=== PATIENT | female | born 1995 | race Hispanic/Latino ===

== ENCOUNTER 2018-08-22 12:03 | Emergency (ER) | payer OTHER, SELFPAY ==
[2018-08-22 12:29] LABS: Bilirubin Small (Negative); Blood, Urine Negative (Negative); Clarity TURBID (Clear); Glucose, Urine (Dipstick) Negative (Negative); Leukocyte Large (Negative); Nitrite Negative (Negative); Protein, Urine (Dipstick) Trace mg/dL (Neg-Trace); Specific Gravity, Urine 1.028 (1.002-1.036); pH, Urine 6.5 (5.0-9.0)
[2018-08-22 12:32] LABS: Bacteria/HPF 1+ HPF (None Seen)
[2018-08-22 12:38] LABS: Pathc Cast-AUWi Flag 3.48 (0-2.49)
[2018-08-22 12:40] LABS: Hyaline Casts/LPF 0-3 HYALINE CAST LPF (0-3 Hyaline); RBC/HPF 0-3 HPF (0-3)
[2018-08-22 12:58] LABS: #Eosinphils 0.1 thou/uL (0.0-0.7); #Lymphocytes 1.5 thou/uL (1.20-3.40); #Monocytes 0.4 thou/uL (0.11-0.59); %Basophils 0.4 % (0.0-1.0); %Eosinophils 2.1 % (0.0-10.0); %Lymphocytes 20.8 % (21.0-51.0); %Monocytes 5.7 % (0.0-10.0); Hemoglobin 13.7 g/dL (12.0-16.0); Mean Corpuscular HGB CONC 33.5 g/dL (32.0-36.0); Mean Corpuscular Hemoglobin 29.9 pg (27.0-31.0); Mean Corpuscular Volume 89.4 fL (78.0-98.0); Mean Platelet Volume 9.7 fL (7.4-10.4); Platelet Count 202 thou/uL (130-400); Red Blood Cell (RBC) Count 4.58 mill/uL (4.20-5.40)
[2018-08-22 13:20] LABS: ALT (SGPT) 73 U/L (8-55); AST (SGOT) 40 U/L (5-34); Albumin 4.4 g/dL (3.5-5.0); Alkaline Phosphatase 61 U/L (40-150); Anion Gap 10 mmol/L (10-20); BUN (Urea Nitrogen) 6 mg/dL (7.0-18.7); Bilirubin, Total 0.4 mg/dL (0.2-1.2); Calc. Creatinine Clearance 0 mL/min (70-130); Calcium 9.9 mg/dL (7.8-10.44); Carbon Dioxide 25 mmol/L (22-29); Chloride 104 mmol/L (98-107); Estimated GFR-MDRD Greater than 90; Globulin 3.1 g/dL (2.4-3.5); Glucose 84 mg/dL (70-105); Lipase 16 U/L (8-78); Potassium 3.9 mmol/L (3.5-5.1); Protein, Total 7.5 g/dL (6.0-8.3); Sodium 135 mmol/L (136-145)
--- NOTE | 2018-08-22 14:47 | ULT ---
PELVIC ULTRASOUND INCLUDING TRANSABDOMINAL AND VASCULAR DUPLEX WIITH COLOR AND SPECTRAL DOPPLER IMAGI NG: Date: 08/22/18 HISTORY: 23-year-old female with history of left pelvic and abdominal pain, with concern for ectopic. FINDINGS: The uterus measures approximately 11.9 x 7.0 x 7.8 cm. There is an intrauterine gestational sac with a viable early pole. heart rate 158 beats/minute. Right ovary measures 3.0 x 2.8 x 2.7 cm . Left ovary measures 3.0 x 2.9 x 1.4 cm. Vascular flow is documented to both ovaries. No evidence fo r ovarian torsion. IMPRESSION: Single viable intrauterine fetus at approximately 8 weeks/1 day of gestation with an EDC of 04/02/19. heart rate 158 beats/minute. Unremarkable adnexa. No abnormal cul-de-sac fluid. POS: [facility]
== END 2018-08-22 14:53 | disposition home or self-care (01) ==
LOC: ERS 12:03
DX: O23.41 Unspecified infection of urinary tract in pregnancy, first trimester (principal); Z3A.08 8 weeks gestation of pregnancy
CPT/HCPCS: 76856; 80053; 81003; 81015; 83690; 84702; 85025; 86900; 86901; 87086; 96360; 96361

== ENCOUNTER 2018-08-26 12:43 | Emergency (ER) | payer SELFPAY ==
[2018-08-26 13:34] LABS: Bilirubin Negative (Negative); Blood, Urine Negative (Negative); Clarity CLOUDY (Clear); Glucose, Urine (Dipstick) Negative (Negative); Leukocyte Large (Negative); Nitrite Negative (Negative); Protein, Urine (Dipstick) Trace mg/dL (Neg-Trace); Specific Gravity, Urine 1.016 (1.002-1.036); pH, Urine 8.5 (5.0-9.0)
[2018-08-26 13:36] LABS: Bacteria/HPF Rare-Few HPF (None Seen); Hyaline Casts/LPF 0-3 HYALINE CAST LPF (0-3 Hyaline); Pathc Cast-AUWi Flag 0.58 (0-2.49)
[2018-08-26 13:42] LABS: RBC/HPF 0-3 HPF (0-3)
[2018-08-26 15:11] LABS: #Eosinphils 0.1 thou/uL (0.0-0.7); #Lymphocytes 1.5 thou/uL (1.20-3.40); #Monocytes 0.4 thou/uL (0.11-0.59); #Neutrophils 5.8 thou/uL (1.40-6.50); %Basophils 0.4 % (0.0-1.0); %Eosinophils 0.9 % (0.0-10.0); %Lymphocytes 19.6 % (21.0-51.0); %Monocytes 5.1 % (0.0-10.0); %Neutrophils 74.1 % (42.0-75.0); Hemoglobin 14.1 g/dL (12.0-16.0); Mean Corpuscular HGB CONC 33.3 g/dL (32.0-36.0); Mean Corpuscular Hemoglobin 29.6 pg (27.0-31.0); Mean Corpuscular Volume 88.9 fL (78.0-98.0); Mean Platelet Volume 9.6 fL (7.4-10.4); Platelet Count 211 thou/uL (130-400); RBC Distribution Width 11.4 % (11.5-14.5); Red Blood Cell (RBC) Count 4.76 mill/uL (4.20-5.40); White Blood Cell (WBC) Count 7.8 thou/uL (4.8-10.8)
[2018-08-26] MEDS ORDERED: Ondansetron ODT 8 MG TAB ONE (15:13)
== END 2018-08-26 15:47 | disposition home or self-care (01) ==
LOC: ERS 12:43
DX: O21.9 Vomiting of pregnancy, unspecified (principal); Z3A.01 Less than 8 weeks gestation of pregnancy
CPT/HCPCS: 36415; 81003; 81015; 85025; 99284

== ENCOUNTER 2018-10-05 14:27 | Emergency (ER) | payer OTHER, SELFPAY ==
[2018-10-05 15:07] LABS: #Eosinphils 0.1 thou/uL (0.0-0.7); #Lymphocytes 1.5 thou/uL (1.20-3.40); #Monocytes 0.4 thou/uL (0.11-0.59); #Neutrophils 5.2 thou/uL (1.40-6.50); %Basophils 0.5 % (0.0-1.0); %Eosinophils 1.8 % (0.0-10.0); %Monocytes 5.7 % (0.0-10.0); %Neutrophils 71.9 % (42.0-75.0); Hemoglobin 13.5 g/dL (12.0-16.0); Mean Corpuscular HGB CONC 34.2 g/dL (32.0-36.0); Mean Corpuscular Hemoglobin 30.6 pg (27.0-31.0); Mean Corpuscular Volume 89.4 fL (78.0-98.0); Mean Platelet Volume 9.4 fL (7.4-10.4); Platelet Count 217 thou/uL (130-400); RBC Distribution Width 12.2 % (11.5-14.5); White Blood Cell (WBC) Count 7.2 thou/uL (4.8-10.8)
[2018-10-05 18:42] LABS: Bilirubin Negative (Negative); Blood, Urine Large (Negative); Clarity CLOUDY (Clear); Glucose, Urine (Dipstick) Negative (Negative); Leukocyte Moderate (Negative); Nitrite Negative (Negative); Protein, Urine (Dipstick) Negative (Neg-Trace); Specific Gravity, Urine 1.028 (1.002-1.036)
[2018-10-05 18:45] LABS: Bacteria/HPF 4+ HPF (None Seen); Pathc Cast-AUWi Flag 5.08 (0-2.49); Yeast-AUWi Flag 32.1 (0-25.0)
[2018-10-05 18:55] LABS: Yeast-All Forms Rare HPF (None Seen)
--- NOTE | 2018-10-05 18:56 | ULT ---
OB ULTRASOUND: 10/05/18 HISTORY: Vaginal bleeding. Real time imaging of the pelvis was performed. This shows a single viable intrauterine . The fetus is in a variable presentation. The placenta is posterior in location. Margin of it is low lyin g and is difficult to exclude a marginal previa at this time. The cervical canal length is 3.3 cm. Fe wade heart rate is 144 beats per minute. Amniotic fluid is adequate for this stage of . measurements are as follows: BPD 2.7 cm 14 weeks, 5 days Head circumference 10 cm 14 weeks, 5 days Abdominal circumference 8.4 cm 14 weeks, 5 days Femur length 1.3 cm 13 weeks, 5 days [place] to rump length 8.8 cm 14 weeks, 5 days The right ovary is normal in size and appearance. The left ovary is not identified. DOPPLER EVALUATION WITH SPECTRAL ANALYSIS: Normal flow is shown to the right ovary. IMPRESSION: 1. Single viable intrauterine in a variable presentation. Overall measurements corresp ond to a gestational age of 14 weeks, 3 days with estimated date of delivery of 04/02/19. 2. Placenta which is posterior in location, somewhat low lying. It is difficult to exclude a mar ginal previa at this time, although probably the changes are probably just related to early . I do not see any signs of any type of bleed. POS: [facility]
== END 2018-10-05 18:35 | disposition home or self-care (01) ==
LOC: ERS 14:27
DX: O20.9 Hemorrhage in early pregnancy, unspecified (principal); Z3A.14 14 weeks gestation of pregnancy
CPT/HCPCS: 36415; 76805; 81003; 81015; 84702; 85025; 86900; 86901

== ENCOUNTER 2018-11-22 13:26 | Outpatient (CLI) | payer OTHER ==
--- NOTE | 2018-11-22 15:31 | ULT ---
OB ULTRASOUND: HISTORY: anatomy. FINDINGS: A single intrauterine gestation is seen with measurements corresponding to an estimated gestational a ge of 21 weeks 5 days and LELO at 03/30/2019. The estimated weight measures 429 gm or 15 ounces. measurements are as follows: BPD 5.09 cm, 21 weeks 3 days HC 19.64 cm, 21 weeks 6 days AC 15.77 cm, 21 weeks 0 days FL 3.80 cm, 22 weeks 2 days heart rate measures 144 b.p.m. RICKY measures 12.8 cm. The placenta is posteriorly located and is low lying without placenta previa. presentation is breech. A 3-vessel cord, cord insertion, kidneys, bladder, stomach, 4-chamber heart, lateral ventricles , cerebellum, spine, lips/nose, upper and lower extremities are visualized. No definite anomal ies are seen. IMPRESSION: 1. Single live intrauterine of 21 weeks 5 days, estimated gestational age and estimated da te of delivery at 03/30/2019. 2. Low-lying posterior placenta without placenta previa. POS: [facility]
== END 2018-11-22 13:27 | disposition home or self-care (01) ==
LOC: BICULT 13:26
PROVIDERS: ATTEND Family Medicine
DX: Z34.82 Encounter for supervision of other normal pregnancy, second trimester (principal); O44.42 Low lying placenta NOS or without hemorrhage, second trimester; Z3A.21 21 weeks gestation of pregnancy
CPT/HCPCS: 76805

== ENCOUNTER 2019-02-26 09:21 | Emergency (ER) | payer OTHER | END 2019-02-26 10:31 | disposition home or self-care (01) | LOC: ERS 09:21 | DX: O99.513 Diseases of the respiratory system complicating pregnancy, third trimester (principal); J02.9 Acute pharyngitis, unspecified; Z3A.35 35 weeks gestation of pregnancy | CPT/HCPCS: 87081; 87430; 99283 ==

== ENCOUNTER 2019-03-24 17:20 | Inpatient (IN) | payer OTHER ==
[~2019-03-24 17:20] MED LIST: Bupivacaine HCl 0.5%/Epinephrine 1:200,000/PF 30 ml Vial ONE; Bupivacaine/Epinephrine 0.25% 30 ML VIAL ONE; Lidocaine 2% MPF 10 ML AMP (For Epidural Use) ONE
[2019-03-24 18:09] VITALS: BMI 34.2
[2019-03-24 18:45] LABS: Amnisure Test RUPTURE DETECTED (No Rupture)
[2019-03-24 18:46] LABS: Amnisure Internal Control QC ACCEPTABLE (ACCEPTABLE)
[2019-03-24] MEDS ORDERED: Promethazine HCl 25 MG/ML VIAL IM PRN ×2 (19:58→21:35)
[2019-03-24] MEDS ORDERED: Ondansetron PF 4 MG/2 ML Vial IVP PRN ×2 (19:58→21:35)
[2019-03-24] MEDS ORDERED: Ibuprofen 800 MG TAB PO PRN (19:58)
[2019-03-24] MEDS ORDERED: NS w/ Oxytocin 10 units 500 ML IV SCH (19:58)
[2019-03-24] MEDS ORDERED: Butorphanol Tartrate 1 MG/ML VIAL SLOW IVP PRN (19:58)
[2019-03-24] MEDS ORDERED: HYDROcodone/Acetaminophen 5/325 mg Tablet PO PRN ×2 (19:58)
[2019-03-24] MEDS ORDERED: Lidocaine 1% (PF) 30 ML VIAL SC PRN (19:58)
[2019-03-24] MEDS ORDERED: Lactated Ringer's 1,000 ML IV SCH ×2 (20:00→21:00)
[2019-03-24] MEDS ORDERED: Penicillin G Potassium 5 MILL.UNITS in Sodium Chloride 0.9% 100 ML IVPB SCH (20:00)
[2019-03-24 20:30] LABS: Hemoglobin 13.1 g/dL (12.0-16.0); Mean Corpuscular HGB CONC 34.7 g/dL (32.0-36.0); Mean Corpuscular Hemoglobin 31.4 pg (27.0-31.0); Mean Corpuscular Volume 90.5 fL (78.0-98.0); Mean Platelet Volume 9.5 fL (7.4-10.4); Platelet Count 144 thou/uL (130-400); Red Blood Cell (RBC) Count 4.16 mill/uL (4.20-5.40)
[2019-03-24] MEDS ORDERED: Fentanyl 4 mcg/Bup 0.1% Cadd 100 ML ONE (20:47)
[2019-03-24 21:18] LABS: Syphilis Antibody Nonreactive (Nonreactive); Syphilis Antibody Index 0.03 S/CO (<1.00 Non-Reactive)
[2019-03-24] MEDS ORDERED: Acetaminophen 325 MG TAB PO PRN (21:35)
[2019-03-24] MEDS ORDERED: Lactated Ringer's 500 ML IV PRN (21:35)
[2019-03-24] MEDS ORDERED: diphenhydrAMINE 50 MG/ML VIAL IVP PRN (21:35)
[2019-03-24] MEDS ORDERED: ePHEDrine/0.9% NaCl/PF SYRINGE 50 mg/10 ml SLOW IVP PRN (21:35)
[2019-03-24] MEDS ORDERED: Naloxone HCl 0.4 mg/ml Vial IVP PRN ×2 (21:35)
[2019-03-24] MEDS ORDERED: Communication Order-Pharmacy FS SCH (21:45)
[2019-03-24] MEDS ORDERED: Fentanyl 4 mcg/Bupivacaine 0.1% Cassette 100 ML EPIDURAL SCH (21:45)
[2019-03-24 21:55] LABS: HBSAg Index 0.62 S/CO (0-0.99); Hep B Surf Ag Non-Reactive S/CO (NonReactive)
[2019-03-24] MEDS: NS / Oxytocin 40 units/1000ml 1,000 ML IV PRN (23:41)
[2019-03-24] MEDS ORDERED: Methylergonovine 0.2 MG TAB ONE (23:42)
[2019-03-24] MEDS ORDERED: Methylergonovine 0.2 MG/ML VIAL ONE (23:42)
[2019-03-24] MEDS ORDERED: Carboprost 250 MCG/ML AMP ONE (23:43)
[2019-03-24] MEDS: Misoprostol 100 MCG TAB ONE ×3 (23:50→23:52)
[2019-03-24] MEDS: Misoprostol 200 MCG TAB ONE ×2 (23:50→23:53)
[2019-03-25] MEDS ORDERED: Carboprost 250 MCG/ML AMP ONE (00:04)
[2019-03-25] MEDS ORDERED: Penicillin G 2.5 MILL.units 2.5 MILL.UNITS in Premix Bag 1 BAG IVPB SCH (01:00)
[2019-03-25] MEDS: NS / Oxytocin 40 units/1000ml 1,000 ML IV PRN (02:50)
[2019-03-25] MEDS ORDERED: Benzocaine-Menthol 82.5 ML CAN TOP PRN (02:52)
[2019-03-25] MEDS ORDERED: Bisacodyl 10 MG SUPP PR PRN (02:52)
[2019-03-25] MEDS ORDERED: Lanolin Ointment 7 GM TUBE TOP PRN (02:52)
[2019-03-25] MEDS ORDERED: HYDROcodone/Acetaminophen 5/325 mg Tablet PO PRN ×2 (02:52)
[2019-03-25] MEDS ORDERED: NS / Oxytocin 40 units/1000ml 1,000 ML IV SCH (02:52)
[2019-03-25] MEDS ORDERED: diphenhydrAMINE 25 MG CAP PO PRN (02:52)
[2019-03-25] MEDS ORDERED: Milk Of Magnesia 30 ML UDCUP PO PRN (02:52)
[2019-03-25] MEDS ORDERED: Ondansetron PF 4 MG/2 ML Vial IVP PRN (02:52)
[2019-03-25] MEDS ORDERED: Misoprostol 200 MCG TAB PO SCH (06:00)
[2019-03-25 07:26] LABS: Hemoglobin 12.8 g/dL (12.0-16.0); Mean Corpuscular HGB CONC 34.8 g/dL (32.0-36.0); Mean Corpuscular Hemoglobin 31.5 pg (27.0-31.0); Mean Corpuscular Volume 90.6 fL (78.0-98.0); Mean Platelet Volume 9.6 fL (7.4-10.4); Platelet Count 139 thou/uL (130-400); RBC Distribution Width 12.7 % (11.5-14.5); Red Blood Cell (RBC) Count 4.06 mill/uL (4.20-5.40); White Blood Cell (WBC) Count 12.4 thou/uL (4.8-10.8)
[2019-03-25] MEDS ORDERED: Adacel (T-DAP) 0.5 ML SYRINGE IM ONE (09:00)
[2019-03-25] MEDS: Ibuprofen 800 MG TAB PO SCH ×3 (17:00→23:41)
[2019-03-25] MEDS: Ferrous Sulfate 325 MG TAB PO SCH (17:55)
[2019-03-25] MEDS: Docusate Calcium (SURFAK) 240 MG CAP PO SCH ×2 (17:56→23:41)
[2019-03-25] MEDS: Prenatal Vitamin 1 TAB PO SCH (17:56)
[2019-03-26] MEDS: Ferrous Sulfate 325 MG TAB PO SCH (11:20)
[2019-03-26] MEDS: Docusate Calcium (SURFAK) 240 MG CAP PO SCH (11:21)
[2019-03-26] MEDS: Prenatal Vitamin 1 TAB PO SCH (11:21)
[2019-03-26] MEDS: Ibuprofen 800 MG TAB PO SCH (11:21)
[2019-03-26 18:29] VITALS: BP 112/74; TEMP 98.4
--- NOTE | 2019-03-27 13:29 | DN ---
DATE OF PROCEDURE: 03/25/2019 DELIVERING PHYSICIANS: Dr. Head, PGY-[address] Xavier Morrissey. PROCEDURE: Spontaneous vaginal delivery. ESTIMATED BLOOD LOSS: 700 mL. PREOPERATIVE DIAGNOSIS: Term intrauterine , in labor. POSTOPERATIVE DIAGNOSIS: Term intrauterine , delivered. INDICATIONS: A 23-year-old G3, P2-0-0-2 female @ 39 weeks comes in for labor. PROCEDURE IN DETAIL: A 23-year-old female, G3, P2-0-0-2 at 39 weeks, who delivered a viable female infant at 11:37 p.m. following an uneventful antepartum course and vigorous female was delivered over an intact perineum in the occiput anterior position. Anterior shoulder and remainder of the body delivered, no nuchal cord , head was held down, mouth and nares were bulb suctioned. Cord was clamped and cut and cord blood collected. Placenta delivered intact and 3 vessel cord was noted. Fundal massage was performed and the fundus was firm. Yet during this time, there was noted to be some excessive bleeding coming from the uterus. Again, no lacerations were noted. At this time, bimanual massage was performed. We gave the patient Methergine, Hemabate, and gave her 800 mg of Cytotec rectally. Afterwards, again, some clots were evacuated and then bimanual massage continued to be performed. It was then noted to be hemostatic at this time. Cervix and vagina were then inspected and found to be free of laceration. Infant went to nursery in good condition for routine care. Apgars were 9 and 9 at one and five minutes respectively. The patient tolerated delivery well and went to after routine recovery/care. Job ID: [id number] [facility]
== END 2019-03-26 16:30 | disposition home or self-care (01) | DRG 807 ==
LOC: L&D/OP 17:20 → L&D 19:21 → 3SE 03-25 05:39
PROVIDERS: ADMIT Family Medicine; ATTEND Family Medicine
PROC: 10E0XZZ Delivery of Products of Conception, External Approach (ICD-10-PCS; principal; 2019-03-25)
DX: O72.1 Other immediate postpartum hemorrhage (principal); Z37.0 Single live birth; Z3A.38 38 weeks gestation of pregnancy
CPT/HCPCS: 36415; 51702; 84112; 85027; 86780; 86850; 86900; 86901; 87340; 99285; J0670; J2001; J2210; J3490

== ENCOUNTER 2019-03-29 21:24 | Emergency (ER) | payer OTHER ==
[~2019-03-29 21:24] MED LIST changes: -Bupivacaine HCl 0.5%/Epinephrine 1:200,000/PF 30 ml Vial ONE; -Bupivacaine/Epinephrine 0.25% 30 ML VIAL ONE; +ISOVUE-370 76%-LOCM 1 ML ONE; -Lidocaine 2% MPF 10 ML AMP (For Epidural Use) ONE
[2019-03-29] MEDS ORDERED: Ketorolac Tromethamine 30 MG/ML VIAL ONE (22:19)
[2019-03-29 22:25] LABS: #Eosinphils 0.1 thou/uL (0.0-0.7); #Monocytes 0.5 thou/uL (0.11-0.59); #Neutrophils 4.9 thou/uL (1.40-6.50); %Basophils 0.1 % (0.0-1.0); %Lymphocytes 26.1 % (21.0-51.0); %Monocytes 6.5 % (0.0-10.0); %Neutrophils 65.3 % (42.0-75.0); Hemoglobin 11.2 g/dL (12.0-16.0); Mean Corpuscular HGB CONC 34.9 g/dL (32.0-36.0); Mean Corpuscular Hemoglobin 31.7 pg (27.0-31.0); Mean Corpuscular Volume 90.7 fL (78.0-98.0); Mean Platelet Volume 8.7 fL (7.4-10.4); Platelet Count 166 thou/uL (130-400); RBC Distribution Width 12.5 % (11.5-14.5); Red Blood Cell (RBC) Count 3.52 mill/uL (4.20-5.40); White Blood Cell (WBC) Count 7.6 thou/uL (4.8-10.8)
--- NOTE | 2019-03-29 22:44 | RAD ---
PORTABLE CHEST: 03/29/19 HISTORY: Leg swelling. Lungs appear clear. No infiltrate. Heart size appears upper normal but is accentuated by this projec tion. IMPRESSION: No acute process. POS: [facility]
[2019-03-29 22:51] LABS: ALT (SGPT) 29 U/L (8-55); AST (SGOT) 19 U/L (5-34); Albumin 3.4 g/dL (3.5-5.0); Alkaline Phosphatase 82 U/L (40-150); Anion Gap 12 mmol/L (10-20); BUN (Urea Nitrogen) 13 mg/dL (7.0-18.7); Bilirubin, Total 0.2 mg/dL (0.2-1.2); Calc. Creatinine Clearance 0 mL/min (70-130); Calcium 8.8 mg/dL (7.8-10.44); Carbon Dioxide 25 mmol/L (22-29); Chloride 108 mmol/L (98-107); Estimated GFR-MDRD Greater than 90; Globulin 2.3 g/dL (2.4-3.5); Glucose 88 mg/dL (70-105); Potassium 3.6 mmol/L (3.5-5.1); Protein, Total 5.7 g/dL (6.0-8.3); Sodium 141 mmol/L (136-145)
--- NOTE | 2019-03-29 23:21 | CT ---
CTA CHEST WITH CONTRAST: 03/29/19 Multiple axial tomograms obtained following angio protocol and multiplanar reconstructions and 3D pos t processing. INDICATIONS: Lower extremity swelling. Shortness of breath. Five days post vaginal delivery. FINDINGS: Pulmonary arteries show adequate opacification. There is no evidence of pulmonary embolus. The lung cuevas are clear. Mild atelectasis in the lung bases. Mediastinum unremarkable. Thoracic aor ta unremarkable. IMPRESSION: 1. No evidence of pulmonary embolus. 2. No acute lung process identified. POS: [facility]
[2019-03-30 00:33] LABS: Bilirubin Negative (Negative); Blood, Urine Moderate (Negative); Clarity CLEAR (Clear); Glucose, Urine (Dipstick) Negative (Negative); Leukocyte Moderate (Negative); Nitrite Negative (Negative); Protein, Urine (Dipstick) Negative (Neg-Trace)
[2019-03-30 00:40] LABS: Specific Gravity, Urine 1.063 (1.002-1.036)
[2019-03-30 00:49] LABS: Bacteria/HPF Rare-Few HPF (None Seen); RBC/HPF 0-3 HPF (0-3); Squamous Epithelial 0-3 HPF (0-3)
--- NOTE | 2019-03-30 07:30 | ULT ---
PRELIMINARY REPORT/[facility]/EMERGENCY AFTER HOURS PROCEDURE: EXAM: US Duplex Bilateral Lower Extremity Veins EXAM DATE/TIME: 03/30/2019 12:55 AM CLINICAL HISTORY: 23 years old, female; Signs and symptoms; Edema, localized; Lower extremity, bilateral; Patient HX: C omplains of SOB and bilat leg swelling. TECHNIQUE: Imaging protocol: Real-time duplex ultrasound of the Bilateral Lower Extremities with 2-D chambers scale, color Doppler flow and spectral waveform analysis. Complete exam focused on the bilateral lower extr emity veins. COMPARISON: No relevant prior studies available. FINDINGS: Right deep veins: The common femoral, femoral, popliteal and visualized calf veins are patent without thrombus. Normal compressibility, augmentation response and Doppler waveforms. Right superficial veins: Saphenofemoral junction is patent without thrombus. Left deep veins: The common femoral, femoral, popliteal and visualized calf veins are patent without thrombus. Normal compressibility, augmentation response and Doppler waveforms. Left superficial veins: Saphenofemoral junction is patent without thrombus. Soft tissues: No acute findings. IMPRESSION: No acute findings. No evidence of deep vein thrombosis. Thank you for allowing us to participate in the care of your patient. Dictated and Authenticated by: Nishant Smart MD 03/30/2019 1:29 AM Central Time ([place] & [place]) FINAL REPORT EMERGENCY AFTER HOURS BILATERAL VENOUS DOPPLER ULTRASOUND: I agree with the preliminary report provided. There is no evidence of DVT of both lower extremities. POS: [facility]
== END 2019-03-30 01:57 | disposition home or self-care (01) ==
LOC: ERS 21:24
DX: O86.20 Urinary tract infection following delivery, unspecified (principal); O99.89 Other specified diseases and conditions complicating pregnancy, childbirth and the puerperium; R06.02 Shortness of breath
CPT/HCPCS: 71045; 71275; 80053; 81003; 81015; 83880; 85025; 87086; 93005; 93970; 96374; J1885; Q9966

== ENCOUNTER 2020-12-05 10:07 | Emergency (ER) | payer OTHER, SELFPAY ==
[2020-12-05] MEDS ORDERED: Acetaminophen 500 MG TAB ONE (10:45)
[2020-12-05] MEDS ORDERED: Ketorolac Tromethamine 30 MG/ML VIAL ONE (10:45)
[2020-12-05 10:55] LABS: #Lymphocytes 0.8 thou/uL (1.20-3.40); #Monocytes 0.2 thou/uL (0.11-0.59); #Neutrophils 2.3 thou/uL (1.40-6.50); %Basophils 0.2 % (0.0-1.0); %Eosinophils 0.3 % (0.0-10.0); %Lymphocytes 23.1 % (21.0-51.0); %Monocytes 4.9 % (0.0-10.0); %Neutrophils 71.6 % (42.0-75.0); Hemoglobin 13.7 g/dL (12.0-16.0); Mean Corpuscular HGB CONC 33.4 g/dL (32.0-36.0); Mean Corpuscular Hemoglobin 29.3 pg (27.0-31.0); Mean Corpuscular Volume 87.7 fL (78.0-98.0); Mean Platelet Volume 9.5 fL (7.4-10.4); Platelet Count 147 thou/uL (130-400); RBC Distribution Width 11.5 % (11.5-14.5); Red Blood Cell (RBC) Count 4.67 mill/uL (4.20-5.40); White Blood Cell (WBC) Count 3.3 thou/uL (4.8-10.8)
[2020-12-05 11:12] LABS: ALT (SGPT) 36 U/L (8-55); AST (SGOT) 33 U/L (5-34); Albumin 4.1 g/dL (3.5-5.0); Alkaline Phosphatase 57 U/L (40-110); Anion Gap 14 mmol/L (10-20); BUN (Urea Nitrogen) 6 mg/dL (7.0-18.7); Bilirubin, Total 0.2 mg/dL (0.2-1.2); Calc. Creatinine Clearance 0 mL/min (70-130); Calcium 8.3 mg/dL (7.8-10.44); Carbon Dioxide 26 mmol/L (22-29); Chloride 100 mmol/L (98-107); Globulin 3.1 g/dL (2.4-3.5); Glucose 98 mg/dL (70-105); Potassium 3.8 mmol/L (3.5-5.1); Protein, Total 7.2 g/dL (6.0-8.3); Sodium 136 mmol/L (136-145)
--- NOTE | 2020-12-05 11:36 | RAD ---
CHEST 1 VIEW: Date: 12/05/2020 HISTORY: COVID-19 patient. Patient feeling worse. Cough. FINDINGS: Normal cardiac silhouette. Pulmonary vessels and hilum are normal. Costophrenic angles are clear. Rig ht lower lobe infiltrate. No pneumothorax or acute osseous abnormality. IMPRESSION: Right lower lobe COVID pneumonia. POS: [facility]
[2020-12-05 12:09] LABS: Bacteria/HPF None Seen HPF (None Seen); Bilirubin Negative (Negative); Blood, Urine Negative (Negative); Clarity Clear (Clear); Glucose, Urine (Dipstick) Normal (Negative); Ketone, Urine Negative (Negative); Leukocyte 25 Leu/uL (Negative); Nitrite Negative (Negative); Protein, Urine (Dipstick) 10 mg/dL (Neg-Trace); RBC/HPF 0-3 HPF (0-3); Specific Gravity, Urine 1.018 (1.002-1.036); WBC/HPF 0-3 HPF (0-3); pH, Urine 6.5 (5.0-9.0)
[2020-12-05 12:11] LABS: Pregnancy Test - Urine (BHCG) Negative (Negative); Pregu Control Background? CLEAR/WHITE (CLR/WHITE); Pregu Control Bar Appear? YES (CONTROL BAR); Specific Gravity 1.018 (1.002-1.036)
== END 2020-12-05 12:45 | disposition home or self-care (01) ==
LOC: ERS 10:07
DX: U07.1 COVID-19 (principal)
CPT/HCPCS: 71045; 80053; 81003; 81015; 81025; 85025; 96374; J1885

== ENCOUNTER 2020-12-11 10:04 | Emergency (ER) | payer SELFPAY ==
[2020-12-11] MEDS ORDERED: Ondansetron PF 4 MG/2 ML Vial ONE (11:04)
[2020-12-11 11:26] LABS: #Eosinphils 0.1 thou/uL (0.0-0.7); #Monocytes 0.4 thou/uL (0.11-0.59); #Neutrophils 3.8 thou/uL (1.40-6.50); %Basophils 0.4 % (0.0-1.0); %Eosinophils 1.4 % (0.0-10.0); %Lymphocytes 18.2 % (21.0-51.0); %Monocytes 8.3 % (0.0-10.0); %Neutrophils 71.8 % (42.0-75.0); Hemoglobin 14.3 g/dL (12.0-16.0); Mean Corpuscular HGB CONC 33.5 g/dL (32.0-36.0); Mean Corpuscular Hemoglobin 29.7 pg (27.0-31.0); Mean Corpuscular Volume 88.4 fL (78.0-98.0); Mean Platelet Volume 8.7 fL (7.4-10.4); Platelet Count 355 thou/uL (130-400); RBC Distribution Width 11.3 % (11.5-14.5); Red Blood Cell (RBC) Count 4.83 mill/uL (4.20-5.40); White Blood Cell (WBC) Count 5.3 thou/uL (4.8-10.8)
[2020-12-11 11:57] LABS: BHCG - Serum Negative (NEGATIVE); Pregs Control Background? CLEAR/WHITE (CLR/WHITE); Pregs Control Bar Appear? YES (CONTROL BAR)
[2020-12-11 12:07] LABS: ALT (SGPT) 29 U/L (8-55); AST (SGOT) 27 U/L (5-34); Albumin 4.2 g/dL (3.5-5.0); Alkaline Phosphatase 63 U/L (40-110); Anion Gap 20 mmol/L (10-20); BUN (Urea Nitrogen) 8 mg/dL (7.0-18.7); Bilirubin, Total 0.4 mg/dL (0.2-1.2); CK (CPK) 66 U/L (29-168); Calc. Creatinine Clearance 0 mL/min (70-130); Calcium 9.6 mg/dL (7.8-10.44); Carbon Dioxide 19 mmol/L (22-29); Chloride 106 mmol/L (98-107); Globulin 4.1 g/dL (2.4-3.5); Glucose 94 mg/dL (70-105); Lipase 17 U/L (8-78); Potassium 4.8 mmol/L (3.5-5.1); Protein, Total 8.3 g/dL (6.0-8.3); Sodium 140 mmol/L (136-145)
--- NOTE | 2020-12-11 12:22 | RAD ---
PORTABLE CHEST: HISTORY: COVID positive. Shortness of breath. COMPARISON: 12/05/2020. FINDINGS: There continues to be hazy infiltrate in the right lower lobe similar to the prior study. Left lung appears clear. Heart and mediastinum unremarkable. IMPRESSION: Persistent hazy infiltrate in the right lower lung. POS: [facility]
[2020-12-11 13:03] LABS: Bilirubin Negative (Negative); Blood, Urine Trace (Negative); Clarity Turbid (Clear); Glucose, Urine (Dipstick) Normal (Negative); Ketone, Urine 10 mg/dL (Negative); Leukocyte 500 Leu/uL (Negative); Nitrite Negative (Negative); Protein, Urine (Dipstick) 50 mg/dL (Neg-Trace); RBC/HPF 0-3 HPF (0-3); Specific Gravity, Urine 1.024 (1.002-1.036); WBC/HPF 21-50 HPF (0-3)
[2020-12-11 13:12] LABS: Bacteria/HPF 1+ HPF (None Seen)
[2020-12-11] MEDS ORDERED: Azithromycin 250 MG TAB ONE (14:23)
== END 2020-12-11 14:46 | disposition home or self-care (01) ==
LOC: ERS 10:04
DX: U07.1 COVID-19 (principal); J12.82 Pneumonia due to coronavirus disease 2019; R11.2 Nausea with vomiting, unspecified; D72.829 Elevated white blood cell count, unspecified
CPT/HCPCS: 71045; 80053; 81003; 81015; 82550; 83690; 84703; 85025; 93005; 96374; 96376; J2405

== ENCOUNTER 2021-09-11 07:50 | Outpatient (CLI) | payer MEDICAID | END 2021-09-11 07:51 | disposition home or self-care (01) | LOC: BICULT 07:50 | PROVIDERS: ATTEND Nurse Practitioner Women's Health | DX: N63.20 Unspecified lump in the left breast, unspecified quadrant (principal); R59.0 Localized enlarged lymph nodes ==

== ENCOUNTER 2022-11-18 09:42 | Emergency (ER) | payer SELFPAY | END 2022-11-18 13:58 | disposition home or self-care (01) | LOC: ERS 09:42 | DX: F41.1 Generalized anxiety disorder (principal) | CPT/HCPCS: 99283 ==

== ENCOUNTER 2022-11-20 19:30 | Emergency (ER) | payer SELFPAY ==
[~2022-11-20 19:30] MED LIST changes: -ISOVUE-370 76%-LOCM 1 ML ONE; +Iopamidol-370 76% 500 ML 1 ML ONE
[2022-11-20 22:00] LABS: #Basophils 0.1 thou/uL (0.0-0.2); #Eosinphils 0.1 thou/uL (0.0-0.7); #Lymphocytes 2.5 thou/uL (1.20-3.40); #Monocytes 0.4 thou/uL (0.11-0.59); #Neutrophils 5.4 thou/uL (1.40-6.50); %Basophils 0.7 % (0.0-1.0); %Eosinophils 1.2 % (0.0-10.0); %Monocytes 5.2 % (0.0-10.0); %Neutrophils 63.9 % (42.0-75.0); Mean Corpuscular HGB CONC 34.3 g/dL (32.0-36.0); Mean Corpuscular Hemoglobin 30.9 pg (27.0-31.0); Mean Corpuscular Volume 90.1 fl (78.0-98.0); Mean Platelet Volume 9.6 fL (7.4-10.4); Platelet Count 226 10x3/uL (130-400); RBC Distribution Width 11.4 % (11.5-14.5); Red Blood Cell (RBC) Count 4.52 mill/uL (4.20-5.40); White Blood Cell (WBC) Count 8.5 10x3/uL (4.8-10.8)
[2022-11-20 22:08] LABS: BHCG - Serum Negative (NEGATIVE); Pregs Control Background? CLEAR/WHITE (CLR/WHITE); Pregs Control Bar Appear? YES (CONTROL BAR)
[2022-11-20 22:20] LABS: ALT (SGPT) 7 U/L (8-55); AST (SGOT) 13 U/L (5-34); Albumin 4.1 g/dL (3.5-5.0); Alkaline Phosphatase 51 U/L (40-110); Anion Gap 15 mmol/L (10-20); BUN (Urea Nitrogen) 5 mg/dL (7.0-18.7); Bilirubin, Total 0.4 mg/dL (0.2-1.2); Calc. Creatinine Clearance 0 mL/min (70-130); Carbon Dioxide 20 mmol/L (22-29); Chloride 107 mmol/L (98-107); Estimated GFR 120; Glucose 82 mg/dL (70-105); Potassium 3.5 mmol/L (3.5-5.1); Protein, Total 7.1 g/dL (6.0-8.3); Sodium 138 mmol/L (136-145)
== END 2022-11-21 01:05 | disposition home or self-care (01) ==
LOC: ERS 19:30
DX: R00.2 Palpitations (principal); R07.9 Chest pain, unspecified
CPT/HCPCS: 36415; 71045; 71275; 80053; 84484; 84703; 85025; 85379; 93005; Q9967

== ENCOUNTER 2023-01-07 19:30 | Emergency (ER) | payer SELFPAY ==
[2023-01-07 20:43] LABS: #Basophils 0.1 thou/uL (0.0-0.2); #Eosinphils 0.1 thou/uL (0.0-0.7); #Lymphocytes 3.1 thou/uL (1.20-3.40); #Monocytes 0.5 thou/uL (0.11-0.59); #Neutrophils 5.1 thou/uL (1.40-6.50); %Basophils 0.7 % (0.0-1.0); %Eosinophils 1.7 % (0.0-10.0); %Lymphocytes 34.9 % (21.0-51.0); %Monocytes 5.5 % (0.0-10.0); %Neutrophils 57.2 % (42.0-75.0); Hemoglobin 14.6 g/dL (12.0-16.0); Mean Corpuscular HGB CONC 34.1 g/dL (32.0-36.0); Mean Corpuscular Hemoglobin 31.3 pg (27.0-31.0); Mean Corpuscular Volume 91.9 fl (78.0-98.0); Mean Platelet Volume 10.2 fL (7.4-10.4); Platelet Count 227 10x3/uL (130-400); RBC Distribution Width 11.8 % (11.5-14.5); Red Blood Cell (RBC) Count 4.64 mill/uL (4.20-5.40); White Blood Cell (WBC) Count 8.8 10x3/uL (4.8-10.8)
[2023-01-07 20:49] LABS: Bacteria/HPF 3+ HPF (None Seen); Bilirubin Negative (Negative); Blood, Urine 2+ (Negative); Clarity Clear (Clear); Glucose, Urine (Dipstick) Normal (Negative); Ketone, Urine Negative (Negative); Leukocyte 75 Leu/uL (Negative); Nitrite Negative (Negative); Protein, Urine (Dipstick) 10 mg/dL (Neg-Trace); RBC/HPF 0-3 HPF (0-3); Specific Gravity, Urine 1.029 (1.002-1.036); Urobilinogen Normal mg/dL (Less than 2); pH, Urine 6.5 (5.0-9.0)
[2023-01-07 20:52] LABS: BHCG - Serum Negative (NEGATIVE); Pregs Control Background? CLEAR/WHITE (CLR/WHITE); Pregs Control Bar Appear? YES (CONTROL BAR)
[2023-01-07 21:03] LABS: ALT (SGPT) 11 U/L (8-55); AST (SGOT) 12 U/L (5-34); Albumin 4.9 g/dL (3.5-5.0); Alkaline Phosphatase 65 U/L (40-110); Anion Gap 14 mmol/L (10-20); BUN (Urea Nitrogen) 12 mg/dL (7.0-18.7); Bilirubin, Total 0.3 mg/dL (0.2-1.2); Calc. Creatinine Clearance 0 mL/min (70-130); Calcium 9.9 mg/dL (7.8-10.44); Carbon Dioxide 26 mmol/L (22-29); Chloride 105 mmol/L (98-107); Estimated GFR 110; Globulin 3.1 g/dL (2.4-3.5); Glucose 87 mg/dL (70-105); Potassium 3.9 mmol/L (3.5-5.1); Sodium 141 mmol/L (136-145)
[2023-01-07] MEDS ORDERED: Meclizine HCl 25 MG TAB ONE (21:40)
== END 2023-01-07 22:55 | disposition home or self-care (01) ==
LOC: ERS 19:30
DX: R42 Dizziness and giddiness (principal); N39.0 Urinary tract infection, site not specified
CPT/HCPCS: 36415; 80053; 81003; 81015; 84703; 85025; 93005

== ENCOUNTER 2023-03-09 14:37 | Outpatient (CLI) | payer SELFPAY | END 2023-03-09 14:38 | disposition home or self-care (01) | LOC: RAD 14:37 | PROVIDERS: ATTEND Nurse Practitioner Family | DX: R07.89 Other chest pain (principal) | CPT/HCPCS: 71046 ==

== ENCOUNTER 2023-09-12 12:11 | Emergency (ER) | payer MEDICAID, SELFPAY ==
[2023-09-12 13:00] LABS: Bilirubin Negative (Negative); Blood, Urine 3+ (Negative); Clarity Turbid (Clear); Glucose, Urine (Dipstick) Normal (Negative); Ketone, Urine Negative (Negative); Leukocyte 500 Leu/uL (Negative); Nitrite Negative (Negative); Protein, Urine (Dipstick) 30 mg/dL (Neg-Trace); Specific Gravity, Urine 1.035 (1.002-1.036); pH, Urine 6.5 (5.0-9.0)
[2023-09-12 13:11] LABS: Bacteria/HPF 1+ HPF (None Seen); CAUTI Indications for Culture Pregnancy
[2023-09-12 13:12] LABS: Urine Culture Reflex Yes Yes
[2023-09-12 13:55] LABS: #Basophils 0.1 thou/uL (0.0-0.2); #Eosinphils 0.1 thou/uL (0.0-0.7); #Monocytes 0.5 thou/uL (0.11-0.59); #Neutrophils 5.3 thou/uL (1.40-6.50); %Basophils 0.6 % (0.0-1.0); %Eosinophils 0.9 % (0.0-10.0); %Lymphocytes 24.7 % (21.0-51.0); %Monocytes 6.4 % (0.0-10.0); Hematocrit 42.7 % (36.0-47.0); Hemoglobin 14.3 g/dL (12.0-16.0); Mean Corpuscular HGB CONC 33.5 g/dL (32.0-36.0); Mean Corpuscular Volume 89.7 fl (78.0-98.0); Mean Platelet Volume 11.7 fL (7.4-10.4); Platelet Count 199 10x3/uL (130-400); RBC Distribution Width 13.2 % (11.5-14.5); Red Blood Cell (RBC) Count 4.76 mill/uL (4.20-5.40); White Blood Cell (WBC) Count 7.8 10x3/uL (4.8-10.8)
[2023-09-12 14:21] LABS: ALT (SGPT) 12 U/L (8-55); AST (SGOT) 13 U/L (5-34); Albumin 4.9 g/dL (3.5-5.0); Alkaline Phosphatase 61 U/L (40-110); Anion Gap 16 mmol/L (10-20); BUN (Urea Nitrogen) 8 mg/dL (7.0-18.7); Bilirubin, Total 0.4 mg/dL (0.2-1.2); Calc. Creatinine Clearance 0 mL/min (70-130); Calcium 9.4 mg/dL (7.8-10.44); Carbon Dioxide 18 mmol/L (22-29); Chloride 105 mmol/L (98-107); Estimated GFR 115; Globulin 2.9 g/dL (2.4-3.5); Glucose 72 mg/dL (70-105); Potassium 3.9 mmol/L (3.5-5.1); Protein, Total 7.8 g/dL (6.0-8.3); Sodium 135 mmol/L (136-145)
[2023-09-12 21:57] LABS: Chlamydia by PCR, Vaginal Swab Not Detected (NotDetected); GC by PCR, Vaginal Swab Not Detected (NotDetected)
== END 2023-09-12 15:56 | disposition home or self-care (01) ==
LOC: ERS 12:11
DX: O20.8 Other hemorrhage in early pregnancy (principal); O20.0 Threatened abortion; Z3A.01 Less than 8 weeks gestation of pregnancy
CPT/HCPCS: 36415; 76801; 80053; 81001; 84702; 85025; 87086; 87480; 87491; 87510; 87591; 87660

== ENCOUNTER 2023-09-20 20:21 | Emergency (ER) | payer MEDICAID ==
[2023-09-20 20:59] LABS: Bacteria/HPF None Seen HPF (None Seen); Bilirubin Negative (Negative); Blood, Urine Negative (Negative); CAUTI Indications for Culture Pelvic or flank pain; Clarity Clear (Clear); Glucose, Urine (Dipstick) Normal (Negative); Ketone, Urine Negative (Negative); Leukocyte 25 Leu/uL (Negative); Nitrite Negative (Negative); Protein, Urine (Dipstick) 10 mg/dL (Neg-Trace); RBC/HPF 0-3 HPF (0-3); Urobilinogen 3 mg/dL (Less than 2); WBC/HPF 0-3 HPF (0-3)
[2023-09-20 21:01] LABS: Urine Culture Reflex No No
[2023-09-20] MEDS ORDERED: Ondansetron PF 4 MG/2 ML Vial ONE (21:03)
[2023-09-20 21:31] LABS: #Eosinphils 0.2 thou/uL (0.0-0.7); #Monocytes 0.6 thou/uL (0.11-0.59); #Neutrophils 6.4 thou/uL (1.40-6.50); %Basophils 0.4 % (0.0-1.0); %Eosinophils 1.6 % (0.0-10.0); %Lymphocytes 24.5 % (21.0-51.0); %Monocytes 5.8 % (0.0-10.0); %Neutrophils 67.3 % (42.0-75.0); Hematocrit 39.5 % (36.0-47.0); Hemoglobin 13.7 g/dL (12.0-16.0); Mean Corpuscular HGB CONC 34.7 g/dL (32.0-36.0); Mean Corpuscular Hemoglobin 30.1 pg (27.0-31.0); Mean Corpuscular Volume 86.8 fl (78.0-98.0); Mean Platelet Volume 11.5 fL (7.4-10.4); Platelet Count 214 10x3/uL (130-400); RBC Distribution Width 13.1 % (11.5-14.5); Red Blood Cell (RBC) Count 4.55 mill/uL (4.20-5.40); White Blood Cell (WBC) Count 9.5 10x3/uL (4.8-10.8)
[2023-09-20 21:59] LABS: ALT (SGPT) 11 U/L (8-55); AST (SGOT) 10 U/L (5-34); Albumin 4.4 g/dL (3.5-5.0); Alkaline Phosphatase 56 U/L (40-110); Anion Gap 12 mmol/L (10-20); BUN (Urea Nitrogen) 9 mg/dL (7.0-18.7); Bilirubin, Total 0.2 mg/dL (0.2-1.2); Calc. Creatinine Clearance 0 mL/min (70-130); Calcium 9.2 mg/dL (7.8-10.44); Carbon Dioxide 24 mmol/L (22-29); Chloride 104 mmol/L (98-107); Estimated GFR 121; Globulin 2.8 g/dL (2.4-3.5); Glucose 83 mg/dL (70-105); Lipase 15 U/L (8-78); Potassium 3.7 mmol/L (3.5-5.1); Protein, Total 7.2 g/dL (6.0-8.3); Sodium 136 mmol/L (136-145)
== END 2023-09-20 23:35 | disposition home or self-care (01) ==
LOC: ERS 20:21
DX: O99.891 Other specified diseases and conditions complicating pregnancy (principal); R10.9 Unspecified abdominal pain; O20.0 Threatened abortion; Z3A.08 8 weeks gestation of pregnancy
CPT/HCPCS: 76856; 80053; 81001; 83690; 84702; 85025; 96374; J2405

== ENCOUNTER 2023-12-13 09:53 | Outpatient (CLI) | payer OTHER | END 2023-12-13 09:54 | disposition home or self-care (01) | LOC: BICULT 09:53 | PROVIDERS: ATTEND Family Medicine | DX: Z34.82 Encounter for supervision of other normal pregnancy, second trimester (principal); Z3A.20 20 weeks gestation of pregnancy | CPT/HCPCS: 76805 ==

== ENCOUNTER 2024-07-20 13:31 | Outpatient (CLI) | payer OTHER | END 2024-07-20 13:32 | disposition home or self-care (01) | LOC: ULT 13:31 | PROVIDERS: ATTEND Advanced Practice Midwife | DX: N92.0 Excessive and frequent menstruation with regular cycle (principal); N83.202 Unspecified ovarian cyst, left side; R93.89 Abnormal findings on diagnostic imaging of other specified body structures | CPT/HCPCS: 76856 ==